=== PATIENT | female | born 1995 | race American Indian/Alaskan Native ===

== ENCOUNTER 2021-11-28 17:11 | Emergency (ER) | payer OTHER ==
[2021-11-28 18:00] VITALS: BP 132/86
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
== END 2021-11-28 23:40 | disposition home or self-care (01) ==
LOC: ED 17:11
DX: S01.81XA Laceration without foreign body of other part of head, initial encounter (principal); Y08.89XA Assault by other specified means, initial encounter; Y93.89 Activity, other specified; Y92.89 Other specified places as the place of occurrence of the external cause; Y99.8 Other external cause status
CPT/HCPCS: 99282